=== PATIENT | female | born 1965 | race Two or more races ===

== ENCOUNTER → 2020-01-07 | Outpatient (CLI) | payer OTHER ==
[~2020-01-07] MED LIST: KRIL1CAP14 PO; MAGN250T9 PO
[2020-01-07 12:45] LABS: BASOPHILS # (AUTO) 0.07 x10^3/uL (0-0.1); BASOPHILS % (AUTO) 1 % (0-1); EOSINOPHILS # (AUTO) 0.13 x10^3/uL (0-0.4); EOSINOPHILS % (AUTO) 2 % (1-7); LYMPHOCYTES # (AUTO) 1.74 x10^3/uL (1-3.4); LYMPHOCYTES % (AUTO) 30 % (22-44); MD NO; MEAN CORPUSCULAR HEMOGLOBIN 26.5 pg (27.0-34.8); MEAN CORPUSCULAR HGB CONC 32.8 g/dL (32.4-35.8); MEAN CORPUSCULAR VOLUME 80.8 fL (80-100); MEAN PLATELET VOLUME 8.6 fL (7.4-10.4); MONOCYTES % (AUTO) 7 % (2-9); NEUTROPHILS # (AUTO) 3.53 x10^3/uL (1.8-6.8); NEUTROPHILS % (AUTO) 60 % (42-75); PLATELET COUNT 269 x10^3/uL (130-400); RED BLOOD COUNT 4.91 x10^6/uL (3.82-5.3); RED CELL DISTRIBUTION WIDTH 15.9 % (9.6-15.2)
[2020-01-07 12:55] LABS: ANION GAP 5 mmol/L (5-15); CALCIUM 8.6 mg/dL (8.5-10.1); CHLORIDE 110 mmol/L (98-107); CREATININE 0.56 mg/dL (0.55-1.02)
[2020-01-07 12:56] LABS: INTERNATIONAL NORMALIZED RATIO 0.91 (0.93-1.1); PROTHROMBIN TIME 9.6 Seconds (9.6-11.5)
== END | disposition home or self-care (01) ==
LOC: STAR 11:00
PROVIDERS: ATTEND Orthopaedic Surgery
DX: Z01.818 Encounter for other preprocedural examination (principal); M17.11 Unilateral primary osteoarthritis, right knee
CPT/HCPCS: 36415; 80048; 83036; 85025; 85610; 85730; 87081; 93005

== ENCOUNTER 2020-01-21 08:33 | Observation (INO) | payer OTHER ==
[~2020-01-21] VITALS: Ht 152.4 cm; Wt 85.1 kg
[~2020-01-21 08:33] MED LIST changes: +ACETAMINOPHEN 650 MG/20.3 ML UDC PO PRN; +BISACODYL 10 MG SUPP PR PRN; +DIPHENHYDRAMINE 25 MG CAPSULE PO PRN; +HYDROcodone/APAP 5/325 TABLET PO PRN; +HYDROmorphone 1 MG/ML, 1ML INJ IV PRN; +MAGNESIUM HYDROXIDE 8%, 30ML UDC PO PRN; +ONDANSETRON 2MG/ML, 2ML IV PRN; +ONDANSETRON 4 MG TABLET PO PRN; +OXYcodone IR 5MG TABLET PO PRN; +SENNA/DOCUSATE TABLET PO PRN; +ZOLPIDEM 5MG TABLET PO PRN
[2020-01-21] MEDS ORDERED: LACTATED RINGERS 1,000 ML IV SCH (08:50)
[2020-01-21] MEDS ORDERED: GABAPENTIN 300 MG CAPSULE PO ONE (09:00)
[2020-01-21] MEDS ORDERED: ACETAMINOPHEN 500 MG TABLET PO ONE (09:00)
[2020-01-21] MEDS ORDERED: TRANEXAMIC ACID 100 MG/ML, 10ML ONE ×2 (09:25)
[2020-01-21] MEDS ORDERED: ROPIvacaine/PF 0.5%, 30 ML ONE (09:25)
[2020-01-21] MEDS ORDERED: KETOROLAC 60 MG/2 ML ONE (09:25)
[2020-01-21] MEDS ORDERED: EPINEPHRINE 1 MG/ML, 1ML ONE (09:26)
[2020-01-21] MEDS ORDERED: SODIUM CHLORIDE 0.9% 50 ML ONE (09:26)
[2020-01-21] MEDS ORDERED: VANCOMYCIN 1,000 MG ONE (09:26)
[2020-01-21] MEDS ORDERED: FENTANYL PF 250 MCG/5ML ONE (09:29)
[2020-01-21] MEDS ORDERED: MIDAZOLAM 1 MG/ML, 2ML ONE (09:29)
[2020-01-21] MEDS ORDERED: LIDOCAINE 2% 100MG/5ML SYRINGE ONE (10:06)
[2020-01-21] MEDS ORDERED: FENTANYL PF 100 MCG/2ML IV PRN (10:30)
[2020-01-21] MEDS ORDERED: DIAZEPAM 5 MG/ML, 2ML IVPush PRN (10:30)
[2020-01-21] MEDS ORDERED: MIDAZOLAM 1 MG/ML, 2ML IV PRN (10:30)
[2020-01-21] MEDS ORDERED: PROMETHAZINE 25 MG/ML, 1ML IV PRN (10:30)
[2020-01-21] MEDS ORDERED: OXYcodone 5 MG/5 ML ORAL.SOL UDC PO PRN (10:30)
[2020-01-21] MEDS ORDERED: PROMETHAZINE 25 MG SUPP PR PRN (10:30)
[2020-01-21] MEDS ORDERED: ONDANSETRON ODT 8 MG PO PRN (10:30)
[2020-01-21] MEDS ORDERED: HYDROmorphone 2 MG/ML, 1ML IVPush PRN (10:30)
[2020-01-21] MEDS ORDERED: ONDANSETRON 2MG/ML, 2ML IV PRN (10:30)
[2020-01-21] MEDS ORDERED: PROPOFOL 10 MG/ML, 20ML ONE (10:46)
[2020-01-21] MEDS ORDERED: ONDANSETRON 2MG/ML, 2ML ONE (10:46)
[2020-01-21] MEDS ORDERED: DEXAMETHASONE 4 MG/ML, 1ML ONE (10:46)
[2020-01-21] MEDS ORDERED: CEFAZOLIN 1,000 MG ONE (10:46)
[2020-01-21 13:30] VITALS: BP 99/77
[2020-01-21] MEDS ORDERED: FLU VACC QS2019-20 36MOS UP/PF 0.5 ML IM-VACC ONE (14:00)
[2020-01-21 14:06] VITALS: BP 114/73
[2020-01-21] MEDS: DOCUSATE 100 MG CAPSULE PO SCH ×2 (14:59→20:42)
[2020-01-21] MEDS: NS + 20MEQ KCL 1,000 ML IV SCH (14:59)
[2020-01-21] MEDS: CEFAZOLIN PMX 2GM/50ML 50 ML IVPB SCH (18:14)
[2020-01-21] MEDS: ASPIRIN 81 MG TABLET EC PO SCH (18:14)
[2020-01-21 19:00] VITALS: BP 111/71
[2020-01-22 00:54] VITALS: BP 112/69
[2020-01-22] MEDS: CEFAZOLIN PMX 2GM/50ML 50 ML IVPB SCH (02:22)
[2020-01-22] MEDS: NS + 20MEQ KCL 1,000 ML IV SCH (02:30)
[2020-01-22 03:46] VITALS: BP 109/68
[2020-01-22] MEDS: ASPIRIN 81 MG TABLET EC PO SCH (05:53)
[2020-01-22] MEDS ORDERED: DEXAMETHASONE 4 MG/ML, 1ML IVPush SCH (06:00)
[2020-01-22 07:36] VITALS: BP 110/68
[2020-01-22] MEDS: DOCUSATE 100 MG CAPSULE PO SCH (09:49)
[2020-01-22] MEDS ORDERED: ASPI81TA45 PO (10:43)
[2020-01-22] MEDS ORDERED: TRAM50TA2 PO (10:44)
[2020-01-22] MEDS ORDERED: OXYC5CAP2 PO (10:44)
[2020-01-22] MEDS ORDERED: MELO7.5T31 PO (10:45)
[2020-01-22 11:30] VITALS: BP 118/70
== END 2020-01-22 12:21 | disposition home or self-care (01) ==
LOC: OUT 08:33 → 4NE 13:35 → OUT 20:56 → 4NE 20:57 → DCLOUNGE 01-22 12:13
PROVIDERS: ADMIT Orthopaedic Surgery; ATTEND Orthopaedic Surgery
DX: M17.11 Unilateral primary osteoarthritis, right knee (principal); Z23 Encounter for immunization
CPT/HCPCS: 27447; 36415; 85014; 85018; 90471; 90686; 96365; 96366; 96375; 97161; 97165; C1713; C1776; G0378; J0171; J0690; J1100; J1885; J2250; J2405; J2704; J2795; J3010; J3370; J3480; J7120

== ENCOUNTER → 2020-05-07 | Outpatient (CLI) | payer OTHER ==
[~2020-05-07] MED LIST changes: -ACETAMINOPHEN 650 MG/20.3 ML UDC PO PRN; +ASPI81TA45 PO; -BISACODYL 10 MG SUPP PR PRN; -DIPHENHYDRAMINE 25 MG CAPSULE PO PRN; -HYDROcodone/APAP 5/325 TABLET PO PRN; -HYDROmorphone 1 MG/ML, 1ML INJ IV PRN; -MAGNESIUM HYDROXIDE 8%, 30ML UDC PO PRN; +MELO7.5T31 PO; +None at this time; -ONDANSETRON 2MG/ML, 2ML IV PRN; -ONDANSETRON 4 MG TABLET PO PRN; +OXYC5CAP2 PO; -OXYcodone IR 5MG TABLET PO PRN; -SENNA/DOCUSATE TABLET PO PRN; +TRAM50TA2 PO; -ZOLPIDEM 5MG TABLET PO PRN
[2020-05-07 08:51] LABS: BASOPHILS # (AUTO) 0.04 x10^3/uL (0-0.1); BASOPHILS % (AUTO) 1 % (0-1); EOSINOPHILS # (AUTO) 0.14 x10^3/uL (0-0.4); EOSINOPHILS % (AUTO) 2 % (1-7); LYMPHOCYTES # (AUTO) 2.06 x10^3/uL (1-3.4); LYMPHOCYTES % (AUTO) 33 % (22-44); MD NO; MEAN CORPUSCULAR HEMOGLOBIN 24.8 pg (27.0-34.8); MEAN CORPUSCULAR HGB CONC 32.2 g/dL (32.4-35.8); MEAN CORPUSCULAR VOLUME 77.1 fL (80-100); MEAN PLATELET VOLUME 8.2 fL (7.4-10.4); MONOCYTES # (AUTO) 0.44 x10^3/uL (0.2-0.8); MONOCYTES % (AUTO) 7 % (2-9); NEUTROPHILS # (AUTO) 3.53 x10^3/uL (1.8-6.8); NEUTROPHILS % (AUTO) 57 % (42-75); PLATELET COUNT 319 x10^3/uL (130-400); RED BLOOD COUNT 5.49 x10^6/uL (3.82-5.3); RED CELL DISTRIBUTION WIDTH 16.4 % (9.6-15.2)
[2020-05-07 09:03] LABS: ANION GAP 9 mmol/L (5-15); CALCIUM 9.1 mg/dL (8.5-10.1); CHLORIDE 107 mmol/L (98-107); CREATININE 0.67 mg/dL (0.55-1.02)
[2020-05-07 09:25] LABS: INTERNATIONAL NORMALIZED RATIO 0.89 (0.93-1.1); PROTHROMBIN TIME 9.4 Seconds (9.6-11.5)
== END | disposition home or self-care (01) ==
LOC: STAR 07:42
PROVIDERS: ATTEND Orthopaedic Surgery
DX: Z01.818 Encounter for other preprocedural examination (principal); M17.12 Unilateral primary osteoarthritis, left knee; M25.562 Pain in left knee
CPT/HCPCS: 36415; 80048; 83036; 85025; 85610; 85730; 87081; 93005

== ENCOUNTER 2020-05-12 09:53 | Observation (INO) | payer OTHER ==
[~2020-05-12] VITALS: Ht 157.5 cm; Wt 84.8 kg
[~2020-05-12 09:53] MED LIST changes: +ACETAMINOPHEN 650 MG/20.3 ML UDC PO PRN; +BISACODYL 10 MG SUPP PR PRN; +DIPHENHYDRAMINE 50 MG CAPSULE PO PRN; +EPINEPHRINE 1 MG/ML, 1ML ONE; +HYDROcodone/APAP 5/325 TABLET PO PRN; +HYDROmorphone 1 MG/ML, 1ML INJ IV PRN; +KETOROLAC 60 MG/2 ML ONE; +MAGNESIUM HYDROXIDE 8%, 30ML UDC PO PRN; +ONDANSETRON 2MG/ML, 2ML IV PRN; +ONDANSETRON 4 MG TABLET PO PRN; +OXYcodone IR 5MG TABLET PO PRN; +ROPIvacaine/PF 0.5%, 20 ML ONE; +ROPIvacaine/PF 0.5%, 30 ML ONE; +SENNA/DOCUSATE TABLET PO PRN; +SODIUM CHLORIDE 0.9% 100 ML ONE; +TRANEXAMIC ACID 100 MG/ML, 10ML ONE; +VANCOMYCIN 1,000 MG ONE
[2020-05-12] MEDS ORDERED: MIDAZOLAM 1 MG/ML, 2ML ONE (10:10)
[2020-05-12] MEDS ORDERED: FENTANYL PF 250 MCG/5ML ONE (10:11)
[2020-05-12] MEDS ORDERED: LACTATED RINGERS 1,000 ML IV SCH (10:17)
[2020-05-12] MEDS ORDERED: ACETAMINOPHEN 500 MG TABLET PO STA (10:18)
[2020-05-12] MEDS ORDERED: GABAPENTIN 300 MG CAPSULE PO STA (10:18)
[2020-05-12] MEDS ORDERED: ACETAMINOPHEN 500 MG TABLET ONE (10:21)
[2020-05-12] MEDS ORDERED: CHLORHEXIDINE 15 ML UDC ONE (10:22)
[2020-05-12] MEDS ORDERED: GABAPENTIN 300 MG CAPSULE ONE (10:22)
[2020-05-12] MEDS ORDERED: ONDANSETRON 2MG/ML, 2ML IVPush PRN (10:30)
[2020-05-12] MEDS ORDERED: HYDROmorphone 1 MG/ML, 1ML INJ IVPush PRN (10:30)
[2020-05-12] MEDS ORDERED: DIPHENHYDRAMINE 50 MG/ML, 1ML IVPush PRN (10:30)
[2020-05-12] MEDS ORDERED: CHLORHEXIDINE 15 ML UDC MM ONE (10:30)
[2020-05-12] MEDS ORDERED: DIAZEPAM 5 MG/ML, 2ML IVPush PRN (10:30)
[2020-05-12] MEDS ORDERED: OXYcodone 5 MG/5 ML ORAL.SOL UDC PO PRN (10:30)
[2020-05-12] MEDS ORDERED: MEPERIDINE/PF 25MG/0.5ML IVPush PRN (10:30)
[2020-05-12] MEDS: CEFAZOLIN PMX 2GM/50ML 50 ML IVPB SCH ×2 (11:20→19:41)
[2020-05-12] MEDS ORDERED: DEXAMETHASONE 4 MG/ML, 1ML ONE (11:43)
[2020-05-12] MEDS ORDERED: PROPOFOL 10 MG/ML, 20ML ONE (11:43)
[2020-05-12] MEDS ORDERED: ONDANSETRON 2MG/ML, 2ML ONE (11:43)
[2020-05-12] MEDS ORDERED: SUCCINYLCHOLINE 20 MG/ML, 10ML ONE (11:43)
[2020-05-12] MEDS ORDERED: OXYcodone 5 MG/5 ML ORAL.SOL UDC ONE (13:04)
[2020-05-12] MEDS ORDERED: FENTANYL PF 100 MCG/2ML ONE (13:04)
[2020-05-12] MEDS: FENTANYL PF 100 MCG/2ML IV PRN ×2 (13:06→13:17)
[2020-05-12 14:00] VITALS: BP 129/80
[2020-05-12] MEDS: DOCUSATE 100 MG CAPSULE PO SCH ×2 (15:34→21:08)
[2020-05-12] MEDS: NS + 20MEQ KCL 1,000 ML IV SCH (15:34)
[2020-05-12] MEDS: ASPIRIN 81 MG TABLET EC PO SCH (18:22)
[2020-05-12 18:24] VITALS: BP 109/68
[2020-05-12] MEDS ORDERED: ZOLPIDEM 5MG TABLET PO PRN (21:00)
[2020-05-12 23:47] VITALS: BP 112/71
[2020-05-13] MEDS: NS + 20MEQ KCL 1,000 ML IV SCH ×2 (03:20→11:47)
[2020-05-13 03:59] VITALS: BP 128/79
[2020-05-13] MEDS ORDERED: DEXAMETHASONE 4 MG/ML, 1ML IVPush SCH (06:00)
[2020-05-13] MEDS: ASPIRIN 81 MG TABLET EC PO SCH (06:03)
[2020-05-13 06:58] VITALS: BP 124/76
[2020-05-13] MEDS: DOCUSATE 100 MG CAPSULE PO SCH (08:48)
[2020-05-13] MEDS ORDERED: TRAM50TA2 PO (09:09)
[2020-05-13] MEDS ORDERED: OXYC5CAP2 PO (09:09)
[2020-05-13] MEDS ORDERED: MELO7.5T31 PO (09:09)
[2020-05-13] MEDS ORDERED: ACET-1600 PO (09:13)
[2020-05-13] MEDS ORDERED: ASPI81TA45 PO (09:14)
[2020-05-13 11:53] VITALS: BP 131/78
[2020-05-13 12:42] VITALS: BP 136/85
== END 2020-05-13 13:15 | disposition home or self-care (01) ==
LOC: OUT 09:53 → 3N 13:43 → OUT 21:00 → DCLOUNGE 05-13 13:09
PROVIDERS: ADMIT Orthopaedic Surgery; ATTEND Orthopaedic Surgery
DX: M17.12 Unilateral primary osteoarthritis, left knee (principal); M21.162 Varus deformity, not elsewhere classified, left knee; Z79.899 Other long term (current) drug therapy
CPT/HCPCS: 27447; 36415; 85014; 85018; 96365; 96366; 96375; 97161; 97165; G0378; J0171; J0330; J0690; J1100; J1885; J2250; J2405; J2704; J2795; J3010; J3370; J3480; J7120; U0001-CS